=== PATIENT | male | born 1955 | race Two or more races ===

== ENCOUNTER 2024-12-10 01:17 | Emergency (ER) | payer MEDICARE, OTHER ==
[~2024-12-10] VITALS: Ht 185.4 cm; Wt 72.7 kg
[2024-12-10 02:13] VITALS: BP 158/93; PULSE 94; RESP 20; TEMP 97.1; O2SAT 99
== END 2024-12-10 05:34 | disposition home or self-care (01) ==
LOC: EMS 01:18
DX: R53.1 Weakness (principal); J45.909 Unspecified asthma, uncomplicated; F10.90 Alcohol use, unspecified, uncomplicated; W06.XXXA Fall from bed, initial encounter; Y90.9 Presence of alcohol in blood, level not specified
CPT/HCPCS: 99283; Z7502

== ENCOUNTER 2024-12-22 07:34 | Emergency (ER) | payer MEDICARE, OTHER ==
[~2024-12-22] VITALS: Ht 182.9 cm; Wt 81.8 kg
[2024-12-22 07:49] VITALS: BP 162/105; PULSE 104; RESP 24; TEMP 98.4; O2SAT 98
[2024-12-22 12:08] LABS: PLATELET COUNT (AUTO) 183 K/uL (150-450); RED BLOOD CELL COUNT(AUTO) 4.15 MIL/uL (4.50-5.90); RED CELL DISTRIBUTION WIDTH 16.6 % (11.5-14.5); WHITE BLOOD COUNT (AUTO) 4.3 K/uL (4.5-11.0)
[2024-12-22 12:18] LABS: CALCIUM, TOTAL 8.7 mg/dL (8.8-10.5); CREATININE 0.71 mg/dL (0.60-1.30); GLOMERULAR FILTR. RATE CALC > 60 mL/min (>60); GLUCOSE,RANDOM 104 mg/dL (70-110); SODIUM SERUM 141 mmol/L (136-145); UREA NITROGEN, BLOOD 7 mg/dL (7-18)
[2024-12-22 12:28] LABS: BAND NEUTROPHILS % (MANUAL) 1 % (0-5); LYMPHOCYTES % (MANUAL) 17 % (22-44); MONOCYTES % (MANUAL) 17 % (2-9); RBC MORPHOLOGY COMMENT NORMAL RBC MORPH; SEGMENTED NEUTROPHILS % 65 % (40-70)
[2024-12-22 12:38] LABS: TROPONIN I-HIGH SENSITIVITY 21 ng/L (<76)
[2024-12-22 15:52] LABS: APPEARANCE,URINE HAZY (CLEAR); GLUCOSE, URINE (UA) NEGATIVE (NEGATIVE); LEUKOCYTE ESTERASE ,URINE MODERATE (NEGATIVE); NITRATE,URINE NEGATIVE (NEGATIVE); OCCULT BLOOD,URINE NEGATIVE (NEGATIVE); SPECIFIC GRAVITIY, URINE 1.018 (1.003-1.030)
[2024-12-22] MEDS ORDERED: DIPH50CA39 PO (16:06)
[2024-12-22] MEDS ORDERED: PRED-729 PO (16:06)
[2024-12-22] MEDS ORDERED: CEPH-558 PO (16:06)
[2024-12-22] MEDS: PERMETHRIN 5% 60 GM CREAM TP ONE (16:07)
[2024-12-22 16:50] LABS: SQUAMOUS EPITHELIAL CELL,UR Rare /LPF (None Seen)
[2024-12-26] MEDS ORDERED: SULF-261 PO (15:04)
== END 2024-12-22 17:09 | disposition home or self-care (01) ==
LOC: EMS 07:37
DX: N39.0 Urinary tract infection, site not specified (principal); B86 Scabies; K59.00 Constipation, unspecified; M79.604 Pain in right leg; M79.605 Pain in left leg; I10 Essential (primary) hypertension; J45.909 Unspecified asthma, uncomplicated; R32 Unspecified urinary incontinence; F10.90 Alcohol use, unspecified, uncomplicated; Y90.9 Presence of alcohol in blood, level not specified
CPT/HCPCS: 99284; 80048; 81001; 83880; 84484; 85025; 87077; 87086; 36415; 93005; J7512; 87186

== ENCOUNTER 2025-02-08 03:13 | Emergency (ER) | payer MEDICARE, OTHER ==
[~2025-02-08] VITALS: Ht 177.8 cm; Wt 80.0 kg
[~2025-02-08 03:13] MED LIST: CEPH-558 PO; DIPH50CA39 PO; PRED-729 PO; SULF1TAB94 PO
[2025-02-08 03:30] VITALS: BP 156/96; PULSE 87; RESP 20; TEMP 98.1; O2SAT 100
[2025-02-08] MEDS: IBUPROFEN 400 MG TABLET PO ONE (05:03)
[2025-02-08] MEDS: ACETAMINOPHEN 500 MG TABLET PO ONE (05:03)
== END 2025-02-08 07:01 | disposition home or self-care (01) ==
LOC: EMS 03:13
DX: F10.229 Alcohol dependence with intoxication, unspecified (principal); G62.9 Polyneuropathy, unspecified; M25.512 Pain in left shoulder; Z79.52 Long term (current) use of systemic steroids; Y90.9 Presence of alcohol in blood, level not specified
CPT/HCPCS: 99283